=== PATIENT | female | born 1990 | race Caucasian/White ===

== ENCOUNTER 2018-01-17 20:00 | Emergency (ER) | payer SELFPAY ==
[2018-01-17 20:27] LABS: URINE HCG POC HCG NEGATIVE (Negative)
[2018-01-17 20:27] LABS: ADD MAN DIFF? NO
[2018-01-17 20:29] LABS: BASO # 0.1 x10^3/uL (0.0-0.2); BASO % 2 % (0-3); EOS # 0.1 x10^3/uL (0.0-0.7); EOS % 1 % (0-3); HEMATOCRIT 40.6 % (36.0-47.0); HEMOGLOBIN 14.1 g/dL (12.0-15.5); LYMPH # 3.4 x10^3/uL (1.0-4.8); LYMPH % 38 % (24-48); MEAN CORPUSCULAR HEMOGLOBIN 29 pg (25-35); MEAN CORPUSCULAR HGB CONC 35 g/dL (31-37); MEAN CORPUSCULAR VOLUME 84 fL (79-100); MONO # 0.5 x10^3/uL (0.0-1.1); MONO % 6 % (0-9); NEUT # 4.8 x10^3uL (1.8-7.7); NEUT % 53 % (31-73); PLATELET COUNT 311 x10^3/uL (140-400); RED BLOOD COUNT 4.86 x10^6/uL (3.50-5.40); RED CELL DISTRIBUTION WIDTH 13.4 % (11.5-14.5); WHITE BLOOD COUNT 8.9 x10^3/uL (4.0-11.0)
[2018-01-17 20:33] LABS: BILIRUBIN,URINE NEGATIVE (NEG); CLARITY,URINE CLEAR; COLOR,URINE AMBER; GLUCOSE,URINE NEGATIVE (NEG); NITRITE,URINE NEGATIVE (NEG); PH,URINE 5.5; PROTEIN,URINE 30 mg/dL (NEG-TRACE); UROBILINOGEN,URINE 0.2 mg/dL (0.2 mg/dL)
[2018-01-17 20:38] LABS: ANION GAP 11 (6-14); BARBITURATES NEG (NEG); BENZODIAZEPINES NEG (NEG); BLOOD UREA NITROGEN 10 mg/dL (7-20); CALCIUM 8.9 mg/dL (8.5-10.1); CANNABINOIDS POS (NEG); CARBON DIOXIDE 25 mmol/L (21-32); CHLORIDE 101 mmol/L (98-107); COCAINE NEG (NEG); CREATININE 0.7 mg/dL (0.6-1.0); GFR 101.1; GLUCOSE 95 mg/dL (70-99); METHADONE NEG (NEG); OPIATES NEG (NEG); PHENCYCLIDINE NEG (NEG); POTASSIUM 3.5 mmol/L (3.5-5.1); SODIUM 137 mmol/L (136-145)
[2018-01-17 20:39] LABS: AMPHETAMINE/METHAMPHETAMINE NEG (NEG); ETHANOL, URINE NEG (NEG)
[2018-01-17 20:40] LABS: PARTIAL THROMBOPLASTIN TIME 29 SEC (24-38); PROTHROMBIN TIME PATIENT 12.9 SEC (11.7-14.0)
[2018-01-17 20:42] LABS: BACTERIA,URINE 0 /HPF (0-FEW); RBC,URINE TNTC /HPF (0-2); SQUAMOUS EPITHELIAL CELL,UR MOD /LPF
[2018-01-17 20:44] LABS: ALBUMIN 3.5 g/dL (3.4-5.0); ALK PHOS 75 U/L (46-116); ALT (SGPT) 31 U/L (14-59); AST (SGOT) 15 U/L (15-37); DIRECT BILIRUBIN 0.1 mg/dL (0.0-0.2); LIPASE 214 U/L (73-393); TOTAL BILIRUBIN 0.3 mg/dL (0.2-1.0); TOTAL PROTEIN 7.1 g/dL (6.4-8.2)
[2018-01-17 20:57] LABS: CKMB MASS < 0.5 ng/mL (0.0-3.6); CREATINE KINASE 61 U/L (26-192)
== END 2018-01-17 22:11 | disposition home or self-care (01) ==
LOC: ER 20:00
DX: A08.4 Viral intestinal infection, unspecified (principal); R09.81 Nasal congestion; R05 Cough
CPT/HCPCS: 36415; 80048; 80076; 80307; 81001; 81025; 82553; 83690; 85025; 85610; 85730; 87086; 99284

== ENCOUNTER 2018-07-05 22:52 | Emergency (ER) | payer SELFPAY ==
[~2018-07-05] VITALS: Ht 165.1 cm; Wt 81.6 kg
[~2018-07-05 22:52] MED LIST: ONDA4TAB10 SL
[2018-07-05 23:33] VITALS: BP 130/75
[2018-07-06] MEDS ORDERED: PENICILLIN G BENZATHINE LA 2,400,000 UNIT/4 ML DISP.SYRIN. IM ONE
--- NOTE | 2018-07-06 00:09 | PHYS DOC ---
Past Medical History Past Medical History: No Pertinent History Past Surgical History: No Surgical History Additional Information: 5 CIGARETTES PER DAY Alcohol Use: Occasionally Drug Use: None Adult General Chief Complaint Chief Complaint: SORE THROAT HPI HPI Patient is a 27 year old female who presents to the ER with complaints of a sore throat for the last 3 days. She states she has a history of frequent strep throat. She reports bilateral ear pain and tactile fever in addition to her symptoms. Pt denies any rash, nasal congestion, cough, nausea, vomiting, diarrhea, abdominal pain, or shortness of breath. Pt speaks in a clear voice. Review of Systems Review of Systems Constitutional: Denies chills, reports tactile fever yesterday [] HENT: Denies nasal congestion, reports sore throat and bilateral ear pain. Respiratory: Denies cough or shortness of breath [] GI: Denies abdominal pain, nausea, vomiting, or diarrhea [] Integument: Denies rash or skin lesions [] Neurologic: Denies headache, focal weakness or sensory changes [] All other systems were reviewed and found to be within normal limits, except as documented in this note. Current Medications Current Medications Current Medications Medications (Trade) Dose Ordered Sig/Meera Start Time Stop Time Status Last Admin Dose Admin Penicillin G Benzathine (Bicillin L-A) 2,400,000 unit 1X ONCE 07/06/18 00:00 07/06/18 00:01 Allergies Allergies Allergies Coded Allergies Type Severity Reaction Last Updated Verified No Known Drug Allergies 05/01/14 No Physical Exam Physical Exam Constitutional: Well developed, well nourished, no acute distress, non-toxic appearance. [] HENT: Normocephalic, atraumatic, bilateral external ears normal, bilateral TMs normal, 2+ edema of bilateral tonsils with large amount of yellow exudate, malodorous breath, oropharynx moist, nose normal. [] Eyes: PERRLA, conjunctiva normal, no discharge. [] Neck: Normal range of motion, no tenderness, no lymphadenopathy, supple, no stridor. [] Cardiovascular:Heart rate regular rhythm, no murmur [] Lungs & Thorax: Bilateral breath sounds clear to auscultation Skin: Warm, dry, no erythema, no rash. [] Neurologic: Alert and oriented X 3, normal motor function, normal sensory function, no focal deficits noted. [] Psychologic: Affect normal, judgement normal, mood normal. [] Current Patient Data Vital Signs Vital Signs Date Time Temp Pulse Resp B/P (MAP) Pulse Ox O2 Delivery O2 Flow Rate FiO2 07/05/18 23:33 99.7 105 18 130/75 (93) 93 Room Air 99.7 Lab Values Rapid strep positive EKG EKG [] Radiology/Procedures Radiology/Procedures [] Course & Med Decision Making Course & Med Decision Making Pertinent Labs and Imaging studies reviewed. (See chart for details) Patient is a 27-year-old female who presented to the emergency room with complaints of a sore throat for the last 3 days, and bilateral ear pain. Vital signs are stable, rapid strep was positive. Physical exam is consistent with strep pharyngitis, treated as such. Patient was given the option to choose between oral antibiotics or a IM injection. Patient chose to have IM injection. 2.4 million units of Bicillin L-A was ordered. Patient encouraged to gargle with warm salty water at least 4 times a day and as needed, discard her toothbrush after tomorrow begin a new toothbrush on July 07., Tylenol or ibuprofen as needed for pain, fever. Follow-up with her primary care doctor in 1 -2 days. Return to the emergency room if her symptoms worsen or persist. She verbalized an understanding and was in agreement with her care plan today. Dragon Disclaimer Dragon Disclaimer This electronic medical record was generated, in whole or in part, using a voice recognition dictation system. Departure Departure Impression: Primary Impression: Pharyngitis, streptococcal, acute Disposition: 01 HOME, SELF-CARE Condition: STABLE Referrals: NO PCP (PCP) Patient Instructions: Strep Throat, [id number] Additional Instructions: Gargle with warm salty water at least 4 times a day and as needed, discard your toothbrush after tomorrow begin a new toothbrush on July 07., Tylenol or ibuprofen as needed for pain, fever. Follow-up with her primary care doctor in 1 -2 days. Return to the emergency room if her symptoms worsen or persist. DOMI GOLDMAN APRN Jul 06, 2018 00:09
== END 2018-07-06 00:28 | disposition home or self-care (01) ==
LOC: ER 22:52
DX: J02.0 Streptococcal pharyngitis (principal); H92.03 Otalgia, bilateral; F17.210 Nicotine dependence, cigarettes, uncomplicated
CPT/HCPCS: 87880; 96372; 99283; J0561